=== PATIENT | male | born 1975 ===

== ENCOUNTER 2016-12-06 14:58 | Emergency (ER) | payer BC ==
[2016-12-06] MEDS ORDERED: ONDANSETRON ODT PREPAC 4 MG TAB.RAPDIS PO ONE (16:24)
[2016-12-06] MEDS ORDERED: ONDANSETRON HCL 4 MG/2 ML VIAL ONE (16:24)
--- NOTE | 2016-12-06 17:32 | ER NURSING DOCUMENTATION ---
Nurse's Notes [facility] Name:Ever Montero Age:41 yrs Sex:Male :1975 Arrival Date:12/06/2016 Time:14:58 Bed1 Private MD: Diagnosis:Influenza Presentation: 12/06 15:11 Presenting complaint: Patient states: Severe body complaints today Family members ma diagnosed with influenza Pt states he stopped Tamiflu because it made him feel bad Pt describes URI symptoms and body aches. Transition of care: Home. 15:11 Acuity: JOSE ALFREDO 3 ri 15:11 Method Of Arrival: Private Vehicle ri Triage Assessment: 15:29 General: Appears distressed, uncomfortable, Behavior is anxious. Pain: Complains of ma pain in back of neck, back of left arm, back of right arm, posterior chest, buttocks, back of left leg, back of right leg and back Pain currently is 9 out of 10 on a pain scale. Historical: - Allergies: Keflex; - Home Meds: 1. Ibuprofen Oral - PMHx: None; - PSHx: Knee surgery; - Tetanus: unknown. - Ebola Screening: : No symptoms or risks identified at this time. . - Immunization history: Flu Vaccine None. - Social history: Smoking status: Patient states was never smoker of tobacco. Patient uses alcohol but reports only rare drinking. marijuana. Screenin:28 Infectious Disease Risk None. Abuse screen: Denies threats or abuse. Nutritional ri screening: No deficits noted. Assessment: 16:27 Reassessment: Patient states feeling better. Patient appears in no apparent distress at ri this time. Vital Signs: 15:00 BP 124 / 77; Pulse 72; Resp 28; Temp 97.7; Pulse Ox 99% on R/A; Weight 77.11 kg; Height ma 5 ft. 10 in. (177.80 cm); Pain 9/10; 15:59 BP 129 / 66; Pulse 58; Pulse Ox 95% ; ma 17:04 BP 118 / 74; Pulse 68; Resp 18 S; Pulse Ox 94% on R/A; ma 15:00 Body Mass Index 24.39 (77.11 kg, 177.80 cm) ri ED Course: 14:58 Patient arrived in ED. arc 15:11 Mere Koch RN is Primary Nurse. ma 15:12 Randall Hunter MD is Attending Physician. ia 15:13 Triage completed. ma 15:28 Valuables Given to family. Patient has correct armband on for positive identification. ma Bed in low position. Call light in reach. Side rails up X 1. Adult w/ patient. Pulse Ox - RN Monitoring Only NIBP On - RN Monitoring Only. 16:58 EKG attached ma Administered Medications: 14:58 Drug: NS 0.9% 1000 ml; Route: IV; Rate: bolus; Site: left hand; Delivery: [place] ma Tubing; 16:26 Follow up: IV Status: Completed infusion; IV Intake: 1000ml ma 16:24 Drug: Zofran 4 mg; Route: IVP; Rate: per protocol; Infused Over: 2 mins; Site: left ma hand; 16:25 Drug: Zofran 1 tablet; Route: PO; ma Intake: 16:26 IV: 1000ml; Total: 1000ml. ma Outcome: 16:21 Discharge ordered by . ia 17:13 Discharged to home ma 17:13 Condition: stable 17:13 Discharge instructions given to patient, Instructed on discharge instructions, follow up and referral plans. Demonstrated understanding of instructions, Prescriptions given X 1. 17:31 Patient left the ED. ri 03 09:40 Discharge F/U Call: Unable to reach: non-working number st Signatures: Rachel Haynes, RN Mere Ellsworth, Randall Garcia RN, ma, MD MD ia Elsa, Amanda, Reg Reg arc
--- NOTE | 2016-12-06 17:32 | ER PHYSICIAN DOCUMENTATION ---
Physician Documentation [facility] Name:Ever Montero Age:41 yrs Sex:Male :1975 Arrival Date:12/06/2016 Time:14:58 Bed1 Private MD: Randall Jimenez Disposition: 12/06/16 16:21 Discharged to Home/Self Care. Impression: Influenza. - Condition is Fair. - Discharge Instructions: INFLUENZA (Adult). - Prescriptions for Zofran 4 mg Oral Tablet - take 1 tablet by ORAL route every 12 hours .; 20 tablet. - Medical Reconciliation form form. - Follow up: Emergency Department; When: As needed; Reason: Worsening of condition. - Problem is an ongoing problem. - Symptoms have improved. HPI: 12/06 16:12 This 41 yrs old Unknown Male presents to ER via Private Vehicle with complaints of sc General Weakness. 16:12 The patient or guardian reports cough, described as moderate, with no sputum. Onset: sc The symptom(s)/episode began/occurred 5 day(s) ago. Severity of symptoms: At their worst the symptoms were severe, in the emergency department the symptoms have improved. Associated signs and symptoms: Pertinent positives: fever, rhinorrhea. all family members with same. Historical: - Allergies: Keflex; - Home Meds: 1. Ibuprofen Oral - PMHx: None; - PSHx: Knee surgery; - Tetanus: unknown. - Ebola Screening: : No symptoms or risks identified at this time. . - Immunization history: Flu Vaccine None. - Social history: Smoking status: Patient states was never smoker of tobacco. Patient uses alcohol but reports only rare drinking. marijuana. ROS: 16:15 Eyes: Negative for injury, pain, redness, and discharge. sc ENT: Negative for injury, pain, and discharge. Neck: Negative for injury, pain, and swelling. Cardiovascular: Negative for chest pain, palpitations, and edema. Abdomen/GI: Negative for abdominal pain, nausea, vomiting, diarrhea, and constipation. Back: Negative for injury and pain. MS/Extremity: Negative for injury and deformity. Skin: Negative for injury, rash, and discoloration. 16:15 Neuro: Negative for headache, weakness, numbness, tingling, and seizure. sc 16:15 Constitutional: Positive for body aches, chills, fatigue, fever. 16:15 Respiratory: Positive for cough, with no reported sputum. Exam: Head/Face: Normocephalic, atraumatic. Eyes: Pupils equal round and reactive to light, extra-ocular motions intact. Lids and lashes normal. Conjunctiva and sclera are non-icteric and not injected. Cornea within normal limits. Periorbital areas with no swelling, redness, or edema. ENT: Nares patent. No nasal discharge, no septal abnormalities noted. Tympanic membranes are normal and external auditory canals are clear. Oropharynx with no redness, swelling, or masses, exudates, or evidence of obstruction, uvula midline. Mucous membranes moist. Neck: Trachea midline, no thyromegaly or masses palpated, and no cervical lymphadenopathy. Supple, full range of motion without nuchal rigidity, or vertebral point tenderness. No meningismus. Chest/axilla: Normal chest wall appearance and motion. Nontender with no deformity. No lesions are appreciated. Cardiovascular: Regular rate and rhythm with a normal S1 and S2. No gallops, murmurs, or rubs. Normal PMI, no JVD. No pulse deficits. Respiratory: Lungs have equal breath sounds bilaterally, clear to auscultation and percussion. No rales, rhonchi or wheezes noted. No increased work of breathing, no retractions or nasal flaring. Abdomen/GI: Soft, non-tender, with normal bowel sounds. No distension or tympany. No guarding or rebound. No evidence of tenderness throughout. Back: No spinal tenderness. No costovertebral tenderness. Full range of motion. 16:16 Skin: Warm, dry with normal turgor. Normal color with no rashes, no lesions, and no sc evidence of cellulitis. 16:16 Constitutional: The patient appears alert, awake, listless. 16:16 Respiratory: the patient does not display signs of respiratory distress, Respirations: normal, Breath sounds: are normal, clear throughout. 16:21 Neuro: Orientation: is normal. ca Vital Signs: 15:00 BP 124 / 77; Pulse 72; Resp 28; Temp 97.7; Pulse Ox 99% on R/A; Weight 77.11 kg; Height ma 5 ft. 10 in. (177.80 cm); Pain 9/10; 15:59 BP 129 / 66; Pulse 58; Pulse Ox 95% ; ma 17:04 BP 118 / 74; Pulse 68; Resp 18 S; Pulse Ox 94% on R/A; ma 15:00 Body Mass Index 24.39 (77.11 kg, 177.80 cm) or MDM: 15:12 Patient medically screened. ca 16:16 Differential Diagnosis: Bronchitis Influenza Upper Respiratory Infection. Data sc reviewed: vital signs, nurses notes, lab test result(s), and as a result, I will discharge patient. Counseling: I had a detailed discussion with the patient and/or guardian regarding: the historical points, exam findings, and any diagnostic results supporting the discharge/admit diagnosis, lab results, to return to the emergency department if symptoms worsen or persist or if there are any questions or concerns that arise at home. Medication response: The patient's symptoms have improved. 16:58 EKG attached or 12/06 15:43 Order name: INFLUENZA A/B; Complete Time: 16:09 EDFL 12/06 16:09 Interpretation: Abnormal. sc Dispensed Medications: 14:58 Drug: NS 0.9% 1000 ml; Route: IV; Rate: bolus; Site: left hand; Delivery: [place] ma Tubing; 16:26 Follow up: IV Status: Completed infusion; IV Intake: 1000ml or 16:24 Drug: Zofran 4 mg; Route: IVP; Rate: per protocol; Infused Over: 2 mins; Site: left or hand; 16:25 Drug: Zofran 1 tablet; Route: PO; or Signatures: Mere Koch RN RN ma Chew, Scott, MD MD ca
== END 2016-12-06 17:32 | disposition home or self-care (01) ==
LOC: ER 14:58
DX: J11.1 Influenza due to unidentified influenza virus with other respiratory manifestations (principal)
CPT/HCPCS: 87449; 96361; 96374; 99283; J2405